=== PATIENT | female | born 1960 | race Caucasian/White ===

== ENCOUNTER 2018-12-19 07:33 | Emergency (ER) | payer BC ==
[~2018-12-19] VITALS: Ht 160 cm; Wt 83.9 kg
[2018-12-19 07:34] VITALS: BP 135/82
[2018-12-19] MEDS ORDERED: XANAX1 MG PO (07:38)
[2018-12-19] MEDS ORDERED: TRAZODONE HCL100 MG PO (07:38)
== END 2018-12-19 08:31 | disposition home or self-care (01) ==
LOC: ER 07:33
DX: S01.01XA Laceration without foreign body of scalp, initial encounter (principal); F32.9 Major depressive disorder, single episode, unspecified; F41.9 Anxiety disorder, unspecified; Z88.0 Allergy status to penicillin; Y00.XXXA Assault by blunt object, initial encounter; Y93.89 Activity, other specified; Y92.89 Other specified places as the place of occurrence of the external cause; Y99.8 Other external cause status

== ENCOUNTER → 2021-04-17 | Outpatient (CLI) | payer OTHER ==
[~2021-04-17] MED LIST: TRAZODONE HCL100 MG PO; XANAX1 MG PO
== END ==
LOC: RAD 10:17
PROVIDERS: ATTEND Internal Medicine
DX: R06.00 Dyspnea, unspecified (principal)

== ENCOUNTER → 2021-05-13 | Outpatient (CLI) | payer OTHER | LOC: CAT 09:40 | PROVIDERS: ATTEND Internal Medicine | DX: Z12.2 Encounter for screening for malignant neoplasm of respiratory organs (principal); J98.4 Other disorders of lung; I25.10 Atherosclerotic heart disease of native coronary artery without angina pectoris; I70.0 Atherosclerosis of aorta; M25.78 Osteophyte, vertebrae; Z87.891 Personal history of nicotine dependence ==

== ENCOUNTER → 2021-05-29 | Outpatient (CLI) | payer OTHER ==
--- NOTE | ~2021-05-29 | EEG ---
[facility] [place] [address] ELECTROENCEPHALOGRAM Name: JESUS CHOWDHURY Room #: [facility]..#: [id number] Admission: 05/29/21 Attend Phys: Chay Sneed MD Discharge: Date of : 64 Report #: [id number] THIS REPORT FOR: //name// DATE OF SERVICE: 05/29/2021 This patient is being evaluated for episodes of dizziness. EEG was done by placing the electrode by standard 10-20 system of electrode placement. Both referential and sequential montages were used for recording. Background activity in this patient's EEG is about 10 Hz and 30 microvolt. The patient became drowsy and that is associated with bilateral slowing and vertex sharp waves. Photic stimulation is unremarkable. Throughout the record, no active epileptiform activity was noticed. IMPRESSION: This patient's EEG is unremarkable. By: [id number] Chay Sneed MD /nt
== END ==
LOC: NEURO 08:44
PROVIDERS: ATTEND Psychiatry & Neurology Neuromuscular Medicine
DX: R42 Dizziness and giddiness (principal); R41.3 Other amnesia